=== PATIENT | male | born 1995 ===

== ENCOUNTER 2018-07-24 02:34 | Emergency (ER) | payer SELFPAY ==
[2018-07-24 03:48] LABS: Hematocrit 44 % (42-52); Hemoglobin 14.6 g/dL (14.0-18.0); Mean Corpuscular HGB Conc 34 g/dL (31-36); Mean Corpuscular Hemoglobin 30 pg (27-31); Mean Corpuscular Volume 89 fL (80-94); Mean Platelet Volume 9.7 fL (7.4-10.4); Platelet Count 242 10^3/uL (150-450); Red Blood Count 4.88 10^6 /uL (4.18-5.48); Red Cell Distribution Width 13 % (10.5-15); White Blood Count 7.1 10^3/uL (3.5-10.8)
--- NOTE | 2018-07-24 03:49 | ED ---
Shortness of Breath - HPI Summary HPI Summary: The patient is a 22 y/o M presenting to [facility] arriving by ambulance accompanied by girlfriend with a chief complaint of sudden onset dizziness, palpitations, and SOB accompanied by difficulty sleeping last night. He reports that he was waking up all night with SOB and productive cough, but his symptoms started out with dizziness during the day. He additionally c/o diarrhea. He states he takes medication for sleeping since he was younger. - History of Current Complaint Chief Complaint: EDDizziness Time Seen by Provider: 07/24/18 03:06 Hx Obtained From: Patient Onset/Duration: Sudden Onset, Lasting Hours, Still Present Current Severity: Mild Dyspnea At: Rest Aggrevating Factors: Nothing Alleviating Factors: Nothing Associated Signs & Symptoms: Cough (Productive) - Allergy/Home Medications Allergies/Adverse Reactions: Allergies Allergy/AdvReac Type Severity Reaction Status Date / Time No Known Drug Allergies Allergy Unknown See Comment Verified 07/24/18 02:52 Home Medications: Home Medications NK [No Home Medications Reported] 07/24/18 [History Confirmed 07/24/18] PMH/Surg Hx/FS Hx/Imm Hx Endocrine/Hematology History: Denies: Hx Diabetes Respiratory History: Denies: Hx Asthma Sensory History: Denies: Hx Deafness Opthamlomology History: Denies: Hx Legally Blind EENT History: Denies: Hx Deafness - Surgical History Surgery Procedure, Year, and Place: none Infectious Disease History: No Infectious Disease History: Denies: Traveled Outside the [place] in Last 30 Days - Family History Known Family History: Negative: Diabetes - Social History Alcohol Use: Occasionally Hx Substance Use: Yes Substance Use Type: Reports: Marijuana Substance Use Comment - Amount & Last Used: 2 days ago Hx Tobacco Use: Yes Smoking Status (MU): Former Smoker Review of Systems Positive: Palpitations Positive: Shortness Of Breath, Cough - productive Positive: Diarrhea Neurological: Other - difficulty sleeping, dizziness All Other Systems Reviewed And Are Negative: Yes Physical Exam - Summary Physical Exam Summary: Appearance: Well-appearing, Well-nourished, lying in bed comfortably Skin: Warm, dry, no obvious rash Eyes: sclera anicteric, no conjunctival pallor ENT: mucous membranes moist, pharynx appears normal Neck: Supple, nontender Respiratory: Clear to auscultation, no signs of respiratory distress Cardiovascular: Normal S1, S2. No murmurs. Normal distal pulses in tibial and radial bilaterally. Abdomen: Soft, nontender, normal active bowel sounds present Musculoskeletal: Normal, Strength/ROM Intact Neurological: A&Ox3, awake and alert, mentation is normal, speech is fluent and appropriate Psychiatric: affect is normal, does not appear anxious or depressed Triage Information Reviewed: Yes Vital Signs On Initial Exam: Initial Vitals Pulse Pulse Ox 57 98 07/24/18 02:40 07/24/18 02:40 Vital Signs Reviewed: Yes Diagnostics - Vital Signs Vital Signs Temp Pulse Resp BP Pulse Ox 07/24/18 03:40 62 10 105/66 07/24/18 03:10 52 14 114/66 98 07/24/18 03:00 51 11 99 07/24/18 02:46 98.3 F 64 14 121/70 99 07/24/18 02:40 57 98 - Laboratory Lab Results: Lab Results 07/24/18 Range/Units 03:37 WBC 7.1 (3.5-10.8) 10^3/uL RBC 4.88 (4.18-5.48) 10^6 /uL Hgb 14.6 (14.0-18.0) g/dL Hct 44 (42-52) % MCV 89 (80-94) fL MCH 30 (27-31) pg MCHC 34 (31-36) g/dL RDW 13 (10.5-15) % Plt Count 242 (150-450) 10^3/uL MPV 9.7 (7.4-10.4) fL Neut % (Auto) Pending Lymph % (Auto) Pending Wilkin % (Auto) Pending Eos % (Auto) Pending Baso % (Auto) Pending Absolute Neuts (auto) Pending Absolute Lymphs (auto) Pending Absolute Monos (auto) Pending Absolute Eos (auto) Pending Absolute Basos (auto) Pending Absolute Nucleated RBC Pending Nucleated RBC % Pending Result Diagrams: 07/24/18 03:37 07/24/18 03:37 Lab Statement: Any lab studies that have been ordered have been reviewed, and results considered in the medical decision making process. - Radiology CXR Radiology Interpretation Completed By: Radiologist Summary of Radiographic Findings: No acute process. ED physician has reviewed this radiology report. - EKG 0347 Cardiac Rate: Bradycardia - 50 BPM EKG Rhythm: Sinus Bradycardia Summary of EKG Findings: Borderline right axis deviation, ST elevation, probable normal early repol pattern Re-Evaluation - Re-Evaluation First Eval Re-Evaluation Time: 04:45 Comment: I discussed results and discharge with the patient. Course/Dx - Course Course Of Treatment: The patient is a 22 y/o M presenting to [facility] arriving by ambulance accompanied by girlfriend with a chief complaint of sudden onset dizziness, palpitations, and SOB accompanied by difficulty sleeping last night. Upon physical exam, the patient exhibits no acute abnormalities. Blood work without significant abnormalities. EKG reveals sinus bradycardia with borderline right axis deviation and ST elevation probable normal early repol pattern. CXR reveals no acute process. He is diagnosed with bronchitis. He will be discharged home with follow up with PCP. He agrees with this plan and understands the need for return to the ED for any new or worsening symptoms. - Diagnoses Provider Diagnoses: Bronchitis Discharge - Sign-Out/Discharge Documenting (check all that apply): Patient Departure - Patient will be discharged home. Patient Received Moderate/Deep Sedation with Procedure: No - Discharge Plan Condition: Good Disposition: HOME Patient Education Materials: Heart Palpitations (ED), Acute Bronchitis (ED) Referrals: [facility] [Outside] - 1 Week (if not better) Additional Instructions: RETURN TO THE EMERGENCY DEPARTMENT FOR ANY NEW OR WORSENING SYMPTOMS. - Billing Disposition and Condition Condition: GOOD Disposition: Home - Attestation Statements Document Initiated by Drew: Yes Documenting Scribe: Kate Reed Provider For Whom Drew is Documenting (Include Credential): Dr. Eusebio Mae MD Scribe Attestation: Kate Braun scribed for Dr. Eusebio Mae MD on 07/25/18 at 0449. Scribe Documentation Reviewed: Yes Provider Attestation: The documentation as recorded by the Kate lawson accurately reflects the service I personally performed and the decisions made by me, Dr. Eusebio Mae MD Status of Scribyoan Document: Viewed
[2018-07-24 04:13] LABS: Albumin 4.2 g/dL (3.2-5.2); Albumin/Globulin Ratio 1.6 (1-3); BUN/Creatinine Ratio 15.3 (8-20); Calcium 9.4 mg/dL (8.6-10.3); EGFR African American 168.4 (>60); EGFR Non-African American 139.2 (>60); Globulin 2.7 g/dL (2-4); Potassium 3.5 mmol/L (3.5-5.0); Total Bilirubin 0.5 mg/dL (0.2-1.0); Total Protein 6.9 g/dL (6.4-8.9)
[2018-07-24 04:38] LABS: ABS Basophils 0.1 10^3/ul (0-0.2); ABS Eosinophils 0.2 10^3/ul (0-0.6); ABS Lymphocytes 2.3 10^3/ul (1.0-4.8); ABS Monocytes 0.6 10^3/ul (0-0.8); ABS Neutrophils 3.9 10^3/ul (1.5-7.7); Eosinophil % 2.4 %; Lymphocyte % 32.6 %; Nucleated Red Blood Cells % 0.1
[2018-07-24 04:54] VITALS: BP 110/61
== END 2018-07-24 04:53 | disposition home or self-care (01) ==
LOC: ED 02:34
DX: J40 Bronchitis, not specified as acute or chronic (principal); R00.1 Bradycardia, unspecified; Z87.891 Personal history of nicotine dependence
CPT/HCPCS: 36415; 71046; 80053; 85025; 99282

== ENCOUNTER 2018-11-21 14:36 | Emergency (ER) | payer SELFPAY ==
[2018-11-21 14:44] VITALS: BP 113/75
--- NOTE | 2018-11-21 20:07 | UC ---
Respiratory Complaint HPI - HPI Summary HPI Summary: Several days of cough, chest congestion and fatigue. Has subjective fever. No nausea/vomiting. - History of Current Complaint Chief Complaint: UCRespiratory Stated Complaint: CONGESTED Time Seen by Provider: 11/21/18 14:47 Hx Obtained From: Patient Onset/Duration: Gradual Onset, Lasting Days, Still Present Severity Initially: Mild Severity Currently: Mild Pain Intensity: 0 Pain Scale Used: 0-10 Numeric Character: Cough: Productive Aggravating Factors: Nothing Alleviating Factors: Nothing Associated Signs And Symptoms: Positive: URI, Nasal Congestion. Negative: Fever , Wheezing - Allergies/Home Medications Allergies/Adverse Reactions: Allergies Allergy/AdvReac Type Severity Reaction Status Date / Time No Known Drug Allergies Allergy Unknown See Comment Verified 11/21/18 14:44 Home Medications: Home Medications Acetaminophen 650 mg PO 11/21/18 [History] D-Methorphan/PE/Acetaminophen [Vicks Dayquil Liquicaps] 2 cap PO 11/21/18 [ History] PMH/Surg Hx/FS Hx/Imm Hx Previously Healthy: Yes - Surgical History Surgical History: Yes Surgery Procedure, Year, and Place: lower back fx - Family History Known Family History: Negative: Diabetes - Social History Alcohol Use: None Substance Use Type: Marijuana Substance Use Comment - Amount & Last Used: 2 days ago Smoking Status (MU): Light Every Day Tobacco Smoker Review of Systems All Other Systems Reviewed And Are Negative: Yes Constitutional: Positive: Fever - subjective, Fatigue ENT: Positive: Nasal Discharge, Sinus Congestion Respiratory: Positive: Cough Cardiovascular: Positive: Negative Gastrointestinal: Positive: Negative Physical Exam Triage Information Reviewed: Yes Appearance: Well-Appearing, No Pain Distress, Well-Nourished Vital Signs: Initial Vital Signs Temp 98.4 F 11/21/18 14:39 Pulse 77 11/21/18 14:39 Resp 18 11/21/18 14:39 BP 113/75 11/21/18 14:39 Pulse Ox 98 11/21/18 14:39 Vital Signs Reviewed: Yes Eyes: Positive: Conjunctiva Clear ENT: Positive: Hearing grossly normal, Pharynx normal, TMs normal Neck: Positive: Supple, Nontender, No Lymphadenopathy Respiratory Exam: Normal Cardiovascular Exam: Normal Abdomen Description: Positive: Soft Musculoskeletal: Positive: No Edema Neurological: Positive: Alert Psychological: Positive: Age Appropriate Behavior Skin: Negative: Rashes Respiratory Course/Dx - Differential Dx/Diagnosis Provider Diagnosis: URI, acute Discharge ED - Sign-Out/Discharge Documenting (check all that apply): Patient Departure All imaging exams completed and their final reports reviewed: No Studies - Discharge Plan Condition: Stable Disposition: HOME Patient Education Materials: Upper Respiratory Infection (ED) Forms: *Work Release Referrals: [facility] [Outside] Additional Instructions: YOUR SYMPTOMS ARE LIKELY VIRALLY MEDIATED AND SHOULD RESOLVE ON THEIR OWN WITH TIME. NO INDICATION FOR ANTIBIOTICS AT PRESENT. REST, HYDRATE, OTC MEDS NEEDED. SEEK FOLLOW-UP IF YOU ARE NOT IMPROVING OVER THE NEXT 1-2 WEEKS. CALL THE NUMBER BELOW FOR ASSISTANCE IN ESTABLISHING WITH A PCP An additional resource available to assist in finding the appropriate physician for your health care needs is the [facility] ([facility]). You may contact them by calling [phone]. - Billing Disposition and Condition Condition: STABLE Disposition: Home
== END 2018-11-21 15:32 | disposition home or self-care (01) ==
LOC: UCEAST 14:36
DX: J06.9 Acute upper respiratory infection, unspecified (principal); F17.290 Nicotine dependence, other tobacco product, uncomplicated
CPT/HCPCS: 99211; G0463

== ENCOUNTER 2018-12-18 00:49 | Emergency (ER) | payer MEDICAID ==
[2018-12-18 00:55] VITALS: BP 128/78
--- NOTE | 2018-12-18 01:50 | ED ---
GI/ HPI - HPI Summary HPI Summary: 23 yo male presents to [facility] ED with two complaints. 1) For the last 5 years he has had a right neck lump that has not changed in size or tenderness. He is concerned about this today and is worried that it is cancer. 2) For the last week he has noticed some redness and itchiness to his anterior scrotum. No penile drainage, testicular pain, or dysuria. Denies risk of STD as he is monogamous with [facility] girlfriend. Denies fever, chills, recent illness, weight loss/gain, abdominal pain, n/v, flank pain. - History of Current Complaint Chief Complaint: EDUrogenitalProblems Time Seen by Provider: 12/18/18 01:50 Stated Complaint: LUMP ON NECK PER PT Hx Obtained From: Patient Severity: Mild Current Severity: Mild Pain Intensity: 2 - Allergy/Home Medications Allergies/Adverse Reactions: Allergies Allergy/AdvReac Type Severity Reaction Status Date / Time No Known Drug Allergies Allergy Unknown See Comment Verified 12/18/18 00:53 PMH/Surg Hx/FS Hx/Imm Hx Endocrine/Hematology History: Denies: Hx Diabetes Respiratory History: Denies: Hx Asthma Sensory History: Denies: Hx Legally Blind, Hx Deafness Opthamlomology History: Denies: Hx Legally Blind - Surgical History Surgical History: Yes Surgery Procedure, Year, and Place: lower back fx Infectious Disease History: No Infectious Disease History: Denies: Traveled Outside the [place] in Last 30 Days - Family History Known Family History: Negative: Diabetes - Social History Lives: With Family Alcohol Use: None Hx Substance Use: Yes Substance Use Type: Reports: Marijuana Substance Use Comment - Amount & Last Used: 2 days ago Hx Tobacco Use: Yes Smoking Status (MU): Light Every Day Tobacco Smoker Review of Systems Constitutional: Negative Eyes: Negative ENT: Negative Cardiovascular: Negative Respiratory: Negative Gastrointestinal: Negative Positive: see HPI Musculoskeletal: Negative Skin: Negative Neurological: Negative Psychological: Normal All Other Systems Reviewed And Are Negative: No Physical Exam - Summary Physical Exam Summary: GENERAL: NAD. WDWN. No pain distress. SKIN: No rashes, sores, lesions, or open wounds. HEENT: Head: AT/NC Eyes: EOM intact. Conjunctiva clear without inflammation or discharge. Ears: Hearing grossly normal. TMs intact, no bulging, erythema, or edema. Nose: Nasal mucosa pink and moist. NTTP maxillary and frontal sinus. Throat: Posterior oropharynx without exudates, erythema, or tonsillar enlargement. Uvula midline. NECK: Supple. Nontender. Right anterior cervical 5mm lymph node firm and mobile. CHEST: CTAB. No accessory muscle use. Breathing comfortably and in no distress. CV: RRR. Pulses intact. Cap refill <2seconds NEURO: Alert. PSYCH: Age appropriate behavior. Triage Information Reviewed: Yes Vital Signs On Initial Exam: Initial Vitals Temp Pulse Resp BP Pulse Ox 98.7 F 58 15 128/78 98 12/18/18 00:50 12/18/18 00:50 12/18/18 00:50 12/18/18 00:50 12/18/18 00:50 Vital Signs Reviewed: Yes Male Genital Exam: Positive: No Hernia, Erythema - mild overlying anterior scrotum with slight raw appearance. Negative: Bleeding, Epididymal Tenderness, Inguinal Tenderness, Lesions, Scrotum Tenderness (R), Scrotum Tenderness (L), Testicular Tenderness (R), Testicular Tenderness (L), Urethral Discharge Procedures - Sedation Patient Received Moderate/Deep Sedation with Procedure: No Diagnostics - Vital Signs Vital Signs Temp Pulse Resp BP Pulse Ox 12/18/18 00:50 98.7 F 58 15 128/78 98 - Laboratory Lab Results: Laboratory Tests 12/18/18 12/18/18 00:56 02:22 WBC 8.0 RBC 4.72 Hgb 14.2 Hct 42 MCV 89 MCH 30 MCHC 34 RDW 14 Plt Count 223 MPV 9.7 Neut % (Auto) 55.0 Lymph % (Auto) 32.3 Charles % (Auto) 9.6 Eos % (Auto) 2.3 Baso % (Auto) 0.8 Absolute Neuts (auto) 4.4 Absolute Lymphs (auto) 2.6 Absolute Monos (auto) 0.8 Absolute Eos (auto) 0.2 Absolute Basos (auto) 0.1 Absolute Nucleated RBC 0.0 Nucleated RBC % 0.1 Urine Color Yellow Urine Appearance Clear Urine pH 7.0 Ur Specific Tensed 1.015 Urine Protein Negative Urine Ketones Negative Urine Blood Negative Urine Nitrate Negative Urine Bilirubin Negative Urine Urobilinogen Negative Ur Leukocyte Esterase Trace A Urine WBC (Auto) Trace(0-5/hpf) Urine RBC (Auto) Absent Urine Bacteria Absent Urine Glucose Negative Lab Statement: Any lab studies that have been ordered have been reviewed, and results considered in the medical decision making process. GIGU Course/Dx - Course Course Of Treatment: Suspect chronic enlarged lymph node to right neck. CBC WNL today. Advised to f/u with PCP for further eval, but does not appear concerning at this time as it has not changed in 5 years. Regarding his scrotum redness - suspect irritation or yeast infection. Will treat with nystatin cream and have him f/u with PCP for a recheck - Diagnoses Provider Diagnoses: Enlarged lymph node, Skin yeast infection Discharge ED - Sign-Out/Discharge Documenting (check all that apply): Patient Departure - Discharge Plan Condition: Stable Disposition: HOME Prescriptions: Nystatin CREAM* [Nystatin Cream*] 1 applic TOPICAL BID #1 tube Patient Education Materials: Eczema (ED), Skin Yeast Infection (ED) Referrals: No Primary Care Phys,NOPCP [Primary Care Provider] - [facility] PHYSICIAN REFERRAL [Outside] - As Soon As Possible Additional Instructions: If you develop a fever, shortness of breath, chest pain, new or worsening symptoms - please call your PCP or go to the ED immediately. Your labwork was normal today. I suspect your redness is due to dry skin/yeast infection - please apply the cream twice a day for a week and this should improve. - Billing Disposition and Condition Condition: STABLE Disposition: Home
--- NOTE | 2018-12-18 01:50 | ED ---
Complaint/Male - History of Current Complaint Chief Complaint: EDUrogenitalProblems Time Seen by Provider: 12/18/18 01:50 - Allergies/Home Medications Allergies/Adverse Reactions: Allergies Allergy/AdvReac Type Severity Reaction Status Date / Time No Known Drug Allergies Allergy Unknown See Comment Verified 12/18/18 00:53 PMH/Surg Hx/FS Hx/Imm Hx Endocrine/Hematology History: Denies: Hx Diabetes Respiratory History: Denies: Hx Asthma Sensory History: Denies: Hx Legally Blind, Hx Deafness Opthamlomology History: Denies: Hx Legally Blind - Surgical History Surgery Procedure, Year, and Place: lower back fx Infectious Disease History: No Infectious Disease History: Denies: Traveled Outside the [place] in Last 30 Days - Family History Known Family History: Negative: Diabetes - Social History Alcohol Use: None Hx Substance Use: Yes Substance Use Type: Reports: Marijuana Substance Use Comment - Amount & Last Used: 2 days ago Hx Tobacco Use: Yes Smoking Status (MU): Light Every Day Tobacco Smoker Physical Exam Vital Signs On Initial Exam: Initial Vitals Temp Pulse Resp BP Pulse Ox 98.7 F 58 15 128/78 98 12/18/18 00:50 12/18/18 00:50 12/18/18 00:50 12/18/18 00:50 12/18/18 00:50 Diagnostics - Vital Signs Vital Signs Temp Pulse Resp BP Pulse Ox 12/18/18 00:50 98.7 F 58 15 128/78 98 - Laboratory Lab Statement: Any lab studies that have been ordered have been reviewed, and results considered in the medical decision making process.
[2018-12-18 02:13] LABS: Urine Appearance Clear; Urine Bacteria Absent (Absent); Urine Bilirubin Negative (Negative); Urine Blood Negative (Negative); Urine Color Yellow; Urine Glucose Negative (Negative); Urine Ketones Negative (Negative); Urine Nitrite Negative (Negative); Urine Protein Negative (Negative); Urine Red Blood Cell Absent (Absent); Urine Specific Gravity 1.015 (1.010-1.030); Urine Urobilinogen Negative (Negative); Urine White Blood Cell Trace(0-5/hpf) (Absent)
[2018-12-18 02:33] LABS: ABS Basophils 0.1 10^3/ul (0-0.2); ABS Eosinophils 0.2 10^3/ul (0-0.6); ABS Lymphocytes 2.6 10^3/ul (1.0-4.8); ABS Monocytes 0.8 10^3/ul (0-0.8); ABS Neutrophils 4.4 10^3/ul (1.5-7.7); Eosinophil % 2.3 %; Hematocrit 42 % (42-52); Hemoglobin 14.2 g/dL (14.0-18.0); Lymphocyte % 32.3 %; Mean Corpuscular HGB Conc 34 g/dL (31-36); Mean Corpuscular Hemoglobin 30 pg (27-31); Mean Corpuscular Volume 89 fL (80-94); Mean Platelet Volume 9.7 fL (7.4-10.4); Nucleated Red Blood Cells % 0.1; Platelet Count 223 10^3/uL (150-450); Red Blood Count 4.72 10^6 /uL (4.18-5.48); Red Cell Distribution Width 14 % (10-15)
[2018-12-18 13:24] LABS: Chlamydia trachomatis NAA Negative (Negative); Neisseria gonorrhoeae (GC) NAA Negative (Negative)
== END 2018-12-18 02:44 | disposition home or self-care (01) ==
LOC: ED 00:49
DX: R59.0 Localized enlarged lymph nodes (principal); B37.2 Candidiasis of skin and nail; F17.200 Nicotine dependence, unspecified, uncomplicated
CPT/HCPCS: 36415; 81003; 81015; 85025; 87086; 87491; 87591; 99282